=== PATIENT | female | born 1985 | race African-American/Black ===

== ENCOUNTER 2018-04-27 21:42 | Emergency (ER) | payer MEDICAID ==
[~2018-04-27] VITALS: Ht 162.6 cm; Wt 84.1 kg
[2018-04-27 21:46] VITALS: BP 139/99; Ht 162.6 cm; Wt 84.1 kg
[2018-04-27] MEDS ORDERED: AMITRIPTYLINE100 MG (21:48)
[2018-04-27] MEDS ORDERED: RANITIDINE HCL150 M1 PO (21:48)
[2018-04-27 22:48] LABS: BASOPHILS 0.4 % (0-2); EOSINOPHILS 2.6 % (0-7); HEMATOCRIT 39.9 % (36.0-48.0); HEMOGLOBIN 14.5 g/dL (12-16); IMMATURE GRANULOCYTES 0.2 % (0-5); MCH 28.9 pg (26.0-34.0); MCHC 36.3 g/dL (31.0-37.0); MCV 79.6 fL (80.0-100.0); MEAN PLATELET VOLUME 10.6 fL (7.4-10.4); MONOCYTES 9.3 % (2-11); NEUTROPHILS 53.5 % (40-80); PLATELET COUNT 341 10x3/uL (130-400); RBC 5.01 10x6/uL (4.00-5.40); RDW 14.7 % (11.5-14.5); WBC 12.8 10x3/uL (4.8-10.8)
[2018-04-27 23:17] LABS: ALBUMIN 3.8 g/dL (3.4-5.0); ALKALINE PHOSPHATASE 69 U/L (46-116); ALT (SGPT) 23 U/L (10-68); BILIRUBIN - TOTAL 0.35 mg/dL (0.2-1.3); CALC OSMOLALITY 273 mosm/kg (275-300); CALCIUM 9.4 mg/dL (8.5-10.1); CARBON DIOXIDE 25.8 mmol/L (21.0-32.0); CHLORIDE - SERUM 102 mmol/L (98-107); CREATININE - SERUM 0.9 mg/dL (0.6-1.3); GLUCOSE 102 mg/dL (74-106); POTASSIUM - SERUM 4.1 mmol/L (3.5-5.1); PROTEIN - SERUM 8.4 g/dL (6.4-8.2); SODIUM 138 mmol/L (136-145); UREA NITROGEN 7 mg/dL (7-18); eGFR NON AFRICAN AMERICAN 76 mL/min (90-120)
[2018-04-27 23:28] LABS: THYROID STIMULATING HORMONE 0.58 uIU/mL (0.36-3.74)
[2018-04-27 23:52] LABS: HCG SERUM NEGATIVE (NEGATIVE)
== END 2018-04-28 00:49 | disposition left against medical advice (07) ==
LOC: D.ER 21:42
PROVIDERS: Family Medicine
DX: F32.9 Major depressive disorder, single episode, unspecified (principal)

== ENCOUNTER 2018-09-02 10:28 | Emergency (ER) | payer MEDICAID ==
[~2018-09-02] VITALS: Ht 162.6 cm; Wt 66.8 kg
[~2018-09-02 10:28] MED LIST: AMITRIPTYLINE100 MG; RANITIDINE HCL150 M1 PO
[2018-09-02 10:39] VITALS: Ht 162.6 cm; Wt 66.8 kg
[2018-09-02] MEDS ORDERED: DIFLUCAN100 MG PO (11:25)
[2018-09-02] MEDS ORDERED: VIBRAMYCIN 100100 MG PO (11:25)
[2018-09-02] MEDS ORDERED: VOLTAREN75 MG PO (11:25)
[2018-09-02 12:01] VITALS: BP 136/84
== END 2018-09-02 11:57 | disposition home or self-care (01) ==
LOC: D.ER 10:28
DX: Q82.8 Other specified congenital malformations of skin (principal); M79.672 Pain in left foot; M79.671 Pain in right foot

== ENCOUNTER 2018-09-12 17:21 | Emergency (ER) | payer MEDICAID ==
[~2018-09-12] VITALS: Ht 162.6 cm; Wt 63.6 kg
[~2018-09-12 17:21] MED LIST changes: +DIFLUCAN100 MG PO; +VIBRAMYCIN 100100 MG PO; +VOLTAREN75 MG PO
[2018-09-12 17:23] VITALS: Ht 162.6 cm; Wt 63.6 kg
[2018-09-12] MEDS ORDERED: EC-NAPROSYN500 MG PO (17:53)
[2018-09-12 18:08] VITALS: BP 112/54
== END 2018-09-12 18:09 | disposition home or self-care (01) ==
LOC: D.ER 17:21
DX: M79.672 Pain in left foot (principal); M79.671 Pain in right foot; L84 Corns and callosities

== ENCOUNTER 2018-09-13 00:46 | Emergency (ER) | payer MEDICAID ==
[~2018-09-13] VITALS: Ht 162.6 cm; Wt 68.0 kg
[~2018-09-13 00:46] MED LIST changes: +EC-NAPROSYN500 MG PO
[2018-09-13 00:55] VITALS: Ht 162.6 cm; Wt 68.0 kg
[2018-09-13 01:49] VITALS: BP 135/78
== END 2018-09-13 01:50 | disposition home or self-care (01) ==
LOC: D.ER 00:46
DX: L84 Corns and callosities (principal); M79.672 Pain in left foot; M79.671 Pain in right foot

== ENCOUNTER 2019-06-11 17:58 | Emergency (ER) | payer MEDICAID ==
[~2019-06-11] VITALS: Ht 162.6 cm; Wt 68.2 kg
[2019-06-11 18:07] VITALS: Ht 162.6 cm; Wt 68.2 kg
[2019-06-11 18:48] LABS: BASOPHILS 0.4 % (0-2); EOSINOPHILS 2.6 % (0-7); HEMATOCRIT 40.1 % (36.0-48.0); HEMOGLOBIN 14.3 g/dL (12-16); IMMATURE GRANULOCYTES 0.4 % (0-5); LYMPHOCYTES 35.9 % (15-50); MCH 28.3 pg (26.0-34.0); MCHC 35.7 g/dL (31.0-37.0); MCV 79.2 fL (80.0-100.0); MEAN PLATELET VOLUME 10.4 fL (7.4-10.4); MONOCYTES 8.2 % (2-11); NEUTROPHILS 52.5 % (40-80); PLATELET COUNT 341 10x3/uL (130-400); RBC 5.06 10x6/uL (4.00-5.40); RDW 14.2 % (11.5-14.5); WBC 14.3 10x3/uL (4.8-10.8)
[2019-06-11 18:49] LABS: APPEARANCE CLEAR (CLEAR); BILIRUBIN NEGATIVE (NEGATIVE); COLOR YELLOW (YELLOW); GLUCOSE NEGATIVE (NEGATIVE); KETONE NEGATIVE (NEGATIVE); NITRITE NEGATIVE (NEGATIVE); PROTEIN NEGATIVE (NEGATIVE); UROBILINOGEN NORMAL (NORMAL)
[2019-06-11 18:53] LABS: CALC OSMOLALITY 275 mosm/kg (275-300); CALCIUM 9.3 mg/dL (8.5-10.1); CARBON DIOXIDE 27.8 mmol/L (21.0-32.0); CHLORIDE - SERUM 105 mmol/L (98-107); CREATININE - SERUM 0.9 mg/dL (0.6-1.3); GLUCOSE 79 mg/dL (74-106); POTASSIUM - SERUM 4.1 mmol/L (3.5-5.1); SODIUM 139 mmol/L (136-145); UREA NITROGEN 10 mg/dL (7-18); eGFR NON AFRICAN AMERICAN 75 mL/min (90-120)
[2019-06-11 18:59] LABS: ALBUMIN 3.6 g/dL (3.4-5.0); ALKALINE PHOSPHATASE 70 U/L (46-116); ALT (SGPT) 28 U/L (10-68); BILIRUBIN - TOTAL 0.33 mg/dL (0.2-1.3); MAGNESIUM - SERUM 1.9 mg/dL (1.8-2.4); PROTEIN - SERUM 7.7 g/dL (6.4-8.2)
[2019-06-11 19:00] LABS: UDS - AMPHET NEGATIVE QUAL (NEGATIVE); UDS - BARB NEGATIVE QUAL (NEGATIVE); UDS - BENZO NEGATIVE QUAL (NEGATIVE); UDS - COCAINE NEGATIVE QUAL (NEGATIVE); UDS - OPIATE NEGATIVE QUAL (NEGATIVE); UDS - PCP NEGATIVE QUAL (NEGATIVE); UDS - THC NEGATIVE QUAL (NEGATIVE)
--- NOTE | 2019-06-11 20:44 | NUR ---
DR BROWN NOTIFIED AND SITTER ORDERED. SITTER AT BEDSIDE. NOTIFIED CHARGE NURSE AND ATTENDING IN REGARDS TO ASSESSMENT FINDINGS. RESOURCES GIVEN TO PT AND SAFETY PLAN INITIATED.
[2019-06-11 22:14] VITALS: BP 132/80
[2019-06-11 22:53] LABS: HCG URINE NEGATIVE (NEGATIVE)
== END 2019-06-11 23:40 ==
LOC: D.ER 17:58
PROVIDERS: Emergency Medicine; Family Medicine
DX: R45.851 Suicidal ideations (principal); F32.9 Major depressive disorder, single episode, unspecified; F20.9 Schizophrenia, unspecified; B20 Human immunodeficiency virus [HIV] disease